=== PATIENT | male | born 1990 | race Caucasian/White ===

== ENCOUNTER 2019-12-25 14:48 | Emergency (ER) | payer OTHER ==
[~2019-12-25] VITALS: Ht 182.9 cm; Wt 118.2 kg
[2019-12-25] MEDS ORDERED: ESCITALOPRAM10 MG PO (14:59)
[2019-12-25] MEDS ORDERED: NORCO 325 MG-51 TA1 PO (15:22)
[2019-12-25 15:56] VITALS: BP 155/99
== END 2019-12-25 15:56 | disposition home or self-care (01) ==
LOC: ED 14:48
DX: M54.42 Lumbago with sciatica, left side (principal); G89.29 Other chronic pain; X50.0XXA Overexertion from strenuous movement or load, initial encounter
CPT/HCPCS: J2360; J3301